=== PATIENT | female | born 1955 | race African-American/Black ===

== ENCOUNTER 2016-11-21 19:24 | Emergency (ER) | payer BC, OTHER ==
[~2016-11-21 19:24] MED LIST: ALAVERT10 MG PO; ANADS PO; ASAB PO; ATARAX50B PO; C1 PO; CHLORTHALID50 MG PO; CLINDA150 PO; COZ50 PO; FERRETTS325 MG PO; FLEX PO; GLUCOPHAGE1000 MG PO; GYNODIOL1 MG PO; HUMALOGMIX SC; HYGROTON 25 MG25 MG PO; HYZAAR 50/12.51 TAB PO; L20 PO; LANTUS SC; LANTUSCART SC; LEVOTHYROXIN125 MCG PO; LEVOTHYROXIN137 MCG PO; LEXAPRO20 PO; LIOR10 PO; LOP50 PO; LORT7 PO; LYRICA50 PO; METHOC500B PO; MICRO-K10 MEQ PO; MOBIC15 MG PO; MYLUD PO; NEXIUM40 PO; NORCO1 TAB PO; NORV10 PO; NORV5 PO; NOVOLOG SC; NOVOPEN SC; PCET; PERCOCET1 TA5 PO; PRAVAC PO; PRILO PO; PROAIR HFA INH; PROVHFA INH; PROZ10 PO; PROZAC20 MG OR; REFRES1 OPH; REQUIP2 PO; SYMBICORT 160/41 INH INH; SYN112 PO; X5 PO; ZANAFLEX 4 MG TA4 MG PO; [UNRECOGNIZED DRUG - REMARK]
[2017-03-10] MEDS ORDERED: LAMICTAL25 PO (14:09)
[2017-03-10] MEDS ORDERED: NORCO1 TA2 PO (14:10)
[2017-03-10] MEDS ORDERED: XANAX2 MG PO (14:10)
[2017-03-10] MEDS ORDERED: LIOR10 PO (14:11)
[2017-03-10] MEDS ORDERED: AMITIZA24 PO (14:12)
[2017-03-10] MEDS ORDERED: SYN125 PO (14:13)
[2017-03-10] MEDS ORDERED: PROAIR HFA INH (14:13)
[2017-03-10] MEDS ORDERED: COZ25 PO (14:15)
[2017-03-10] MEDS ORDERED: LOP50 PO (14:15)
[2017-03-10] MEDS ORDERED: NORV5 PO (14:16)
[2017-03-10] MEDS ORDERED: NOVOLOG SC (14:16)
[2017-03-10] MEDS ORDERED: LANTUS SC (14:16)
[2017-03-10] MEDS ORDERED: ICY HOT OINTMENT TOP (14:18)
[2017-03-12] MEDS ORDERED: PRILOSEC OTC20 MG PO (12:42)
[2017-03-12] MEDS ORDERED: LIPITOR40 (12:43)
[2017-03-12] MEDS ORDERED: NTG150 SL (12:43)
[2017-03-12] MEDS ORDERED: LIPITOR40 PO (12:44)
== END 2016-11-21 20:04 | disposition home or self-care (01) ==
LOC: ER 19:24
DX: S46.912A Strain of unspecified muscle, fascia and tendon at shoulder and upper arm level, left arm, initial encounter (principal); S66.912A Strain of unspecified muscle, fascia and tendon at wrist and hand level, left hand, initial encounter; S80.02XA Contusion of left knee, initial encounter; F17.200 Nicotine dependence, unspecified, uncomplicated; E11.9 Type 2 diabetes mellitus without complications; Z88.8 Allergy status to other drugs, medicaments and biological substances; Z79.899 Other long term (current) drug therapy; Z79.4 Long term (current) use of insulin; W19.XXXA Unspecified fall, initial encounter
CPT/HCPCS: 73030-LT; 73110-LT; 73560-LT; 99284; A9270-GY